=== PATIENT | male | born 1960 | race Caucasian/White ===

== ENCOUNTER → 2022-06-30 15:55 | Outpatient (REF) | payer BC, SELFPAY | LOC: HO.SL 15:55 | PROVIDERS: PCP Internal Medicine; Visit Provider Nurse Practitioner Family | DX: G47.33 Obstructive sleep apnea (adult) (pediatric) (principal); Z99.89 Dependence on other enabling machines and devices | CPT/HCPCS: 95806 ==

== ENCOUNTER → 2022-09-28 15:50 | Outpatient (BNVA) | payer BC, SELFPAY | PROVIDERS: PCP Internal Medicine; Visit Provider Nurse Practitioner Family | DX: Z13.89 Encounter for screening for other disorder (principal) ==

== ENCOUNTER 2023-03-31 14:24 | Outpatient (AMB) | payer BC, SELFPAY ==
--- NOTE | 2023-03-31 14:32 | A.OFFVIS_ITS ---
Intake Vital Signs 03/31/23 14:33 Height 6 ft 3 in Weight 248 lb BMI 31.0 BP 122/88 Blood Pressure Location Rt brachial Position Sitting Intake Visit Reasons: 6 mo f/u -Confirmed Intake Note: Patient presents for 6 month follow up. Patient states the headches are controlled better with the nurtec. Allergies Penicillins Allergy (Severe, Verified 03/31/23 14:36) Fever Medication List - Last Reconciled 03/31/23 by HERNAN Jean folic acid-vit B6-vit B12 2.2-25-0.5 mg (Folplex) 1 tab PO DAILY rimegepant (Nurtec ODT) 75 mg PO Q OTHER DAY PRN 30 days tadalafil 10 mg PO HPI HPI Comments History of Present Illness Details 62-yr-old male presents for f/u visit. Pt denies any significant interval medical changes. Pt reports that he continues to have cluster headache every October and February- May. His last cluster attack started in Feb. His cluster attack is right-sided. Taking Nurtec and high-flow O2 at onset helps to decrease intensity. During cluster attacks- he avoids triggers such as alcohol or certain foods, such as left-over pork. He has unilateral headaches with photophobia/phonophobia, which responds well to Nurtec odt 75mg. He is needing to use Nurtec on average 3-4 x's per month. He continues to sleep well with APAP 5-20 cmH2O, occassionally may remove mask in his sleep. I am unable to access his [employer] account today, however pt has [employer] sam which continues to show residual AHI < 5. PFSH Surgical History Hx of hand surgery History of deviated nasal septum Family History Father Pancreatic cancer Mother No known health problems Social History Household Members: Spouse Alcohol intake: current Alcohol intake frequency: holidays/special occasions only Patient Tobacco Use Status: Former Tobacco user Review of Systems Const All systems reviewed & are unremarkable except as noted in HPI and below Physical Exam Vital Signs: Last Vital Signs BP 122/88 03/31/23 14:33 BMI result Body Mass Index 31.0 Const General: cooperative and no acute distress Orientation/consciousness: patient oriented x3 HEENT Head: Yes normocephalic Resp Effort & Inspection: normal respiratory effort and able to speak in complete sentences Neuro General: patient oriented x3, gait normal and CN's II-XI intact bilaterally Cognition (Neuro): normal cognition Motor exam (neuro): 5/5 motor strength present throughout Psych Appearance: grossly normal Mental Status: mental status grossly normal Speech and movement: Normal speech and movement present Affect: normal affect Attitude: cooperative Thought process: Normal thought process present Thought content: Normal thought content present Insight: Good insight present (Psych) Judgement: Good judgement present (Psych) Assessment & Plan Assessment & Plan (1) Cluster headache, episodic: Code(s): G44.019 - Episodic cluster headache, not intractable (2) Migraine: Code(s): G43.909 - Migraine, unspecified, not intractable, without status migrainosus (3) Moderate obstructive sleep apnea: Code(s): G47.33 - Obstructive sleep apnea (adult) (pediatric) Plan For CH and migraine: High Flow oxygen for clusters 12-15LPM for 15 min?prn cluster attack. Continue Nurtec ODT 75mg qod prn onset of headache/migraine. He previously tried and failed: imitrex , zomig , topiramate, propranalol, verapramil, fioricet, ibuprofen, tylenol etc. Brief trial of Gamma Core during an attack- unhelpful. Future considerations: Emgality 300mg at onset of and then monthly throughout Cluster attack. Zavegepant CGRP nasal spray- when available. For NATHALY: Continue APAP 5-20 cmH2O nightly > 4 hrs- as pt is having good clinical effect. Will again request that we be connected to pt's [employer] account. [place] and change PAP supplies routinely. f/u in 6 months or sooner prn. Coding Level of Care Code Est Pt Level 4 (19486) Diagnoses Cluster headache, episodic G44.019 Migraine G43.909 Moderate obstructive sleep apnea G47.33
[2023-03-31 14:33] VITALS: BP 122/88; BMI 31.0
== END 2023-03-31 15:03 | disposition home or self-care (01) ==
PROVIDERS: Visit Provider Nurse Practitioner Family
DX: G44.019 Episodic cluster headache, not intractable (principal); G43.909 Migraine, unspecified, not intractable, without status migrainosus; G47.33 Obstructive sleep apnea (adult) (pediatric)
CPT/HCPCS: 99214

== ENCOUNTER → 2023-03-31 14:24 | Outpatient (BNVA) | payer BC, SELFPAY | PROVIDERS: Visit Provider Nurse Practitioner Family ==

== ENCOUNTER 2023-12-22 12:59 | Outpatient (AMB) | payer BC, SELFPAY ==
--- NOTE | 2023-12-22 13:01 | A.OFFVIS_ITS ---
Vital Signs 12/22/23 13:07 Height 6 ft 3 in Weight 246 lb BMI 30.7 BP 120/80 Blood Pressure Location Lt brachial Position Sitting Pulse 56 Pulse Source Pulse Oximeter Pulse Oximetry (%) 9 L Oxygen Delivery Method Room Air Intake Visit Reasons: 6 mnts f/u appt -Conf Intake Note: Patient presents for 6 months f/u. Not using CPAP machine for 2 months now due to waking up choking. Allergies Penicillins Allergy (Severe, Verified 12/22/23 13:06) Fever Medication List - Last Reconciled 12/22/23 by HERNAN Jean folic acid-vit B6-vit B12 2.2-25-0.5 mg (Folplex) 1 tab PO DAILY rimegepant (Nurtec ODT) 75 mg PO Q OTHER DAY PRN 30 days tadalafil 10 mg PO HPI Comments Details: 63-yr-old male presents for f/u visit. Pt denies any significant interval medical changes. He states that he started having difficulties using his CPAP machine. Found himself waking up choking and having difficulty breathing, so he stopped it about 2 weeks ago. Without CPAP, he feels he has not slept as well. He has not had any nocturnal SOB or difficulty breathing when not using CPAP. He does plan to try using CPAP again. Pt reports that he continues to have cluster headache every October and February- May. His cluster attack is right-sided. Taking Nurtec and high-flow O2 at onset helps to decrease intensity. During cluster attacks- he avoids triggers such as alcohol or certain foods, such as left-over pork. He also has unilateral headaches with photophobia/phonophobia, which responds well to Nurtec odt 75mg. He is needing to use Nurtec on average 3-4 x's per month, however in the last month has needed to use Nurtec 15 days. He does have a home O2 tank- uses prn cluster attack. Uses [employer]. [facility] Surgical History Hx of hand surgery History of deviated nasal septum Family History Father Pancreatic cancer Mother No known health problems Social History Household Members: Spouse Alcohol intake: current Alcohol intake frequency: holidays/special occasions only Patient Tobacco Use Status: Former Tobacco user Physical Exam Vital Signs: Last Vital Signs Pulse 56 12/22/23 13:07 BP 120/80 12/22/23 13:07 Pulse Ox 9 L 12/22/23 13:07 Oxygen Delivery Method Room Air 12/22/23 13:07 BMI result Body Mass Index 30.7 Const General: cooperative and no acute distress Orientation/consciousness: patient oriented x3 Resp Effort & Inspection: normal respiratory effort and able to speak in complete sentences Neuro General: patient oriented x3 Cranial nerves: Yes CN's II-XII intact bilaterally Cognition (Neuro): normal cognition Psych Appearance: grossly normal Mental Status: mental status grossly normal Speech and movement: Normal speech and movement present Affect: normal affect Attitude: cooperative Assessment & Plan Assessment & Plan (1) Cluster headache, episodic: Code(s): G44.019 - Episodic cluster headache, not intractable Category: Medical (2) Migraine: Code(s): G43.909 - Migraine, unspecified, not intractable, without status migrainosus Category: Medical (3) NATHALY on CPAP: Code(s): G47.33 - Obstructive sleep apnea (adult) (pediatric); Z99.89 - Dependence on other enabling machines and devices Category: Medical (4) Moderate obstructive sleep apnea: Code(s): G47.33 - Obstructive sleep apnea (adult) (pediatric) Category: Medical Plan For CH and migraine: High Flow oxygen for clusters 12-15LPM for 15 min?prn cluster attack. Continue Nurtec ODT 75mg qod prn onset of headache/migraine. He previously tried and failed: imitrex , zomig , topiramate, propranalol, verapramil, fioricet, ibuprofen, tylenol etc. Brief trial of Gamma Core during an attack- unhelpful. Future considerations: Emgality 300mg at onset of and then monthly throughout Cluster attack. Zavegepant CGRP nasal spray- when available. ? For NATHALY: Try resuming APAP 5-20 cmH2O nightly > 4 hrs- as pt typically has good clinical effect from use. If pt does not tolerate it again, consider adjusting pressures. Clean and change PAP supplies routinely. ? f/u in 12 months or sooner prn. Coding Level of Care Code Est Pt Level 4 (39839) Diagnoses Cluster headache, episodic G44.019 Migraine G43.909 NATHALY on CPAP G47.33; Z99.89 Moderate obstructive sleep apnea G47.33
[2023-12-22 13:07] VITALS: BP 120/80; PULSE 56; O2SAT 9; BMI 30.7
== END 2023-12-22 13:58 | disposition home or self-care (01) ==
PROVIDERS: PCP Internal Medicine; Visit Provider Nurse Practitioner Family
DX: G44.019 Episodic cluster headache, not intractable (principal); G43.909 Migraine, unspecified, not intractable, without status migrainosus; G47.33 Obstructive sleep apnea (adult) (pediatric); Z99.89 Dependence on other enabling machines and devices
CPT/HCPCS: 99214

== ENCOUNTER → 2023-12-22 12:59 | Outpatient (BNVA) | payer BC, SELFPAY | PROVIDERS: PCP Internal Medicine; Visit Provider Nurse Practitioner Family ==

== ENCOUNTER 2024-12-21 12:49 | Outpatient (AMB) | payer OTHER, SELFPAY ==
--- NOTE | 2024-12-21 13:01 | A.OFFVIS_ITS ---
Vital Signs 12/21/24 13:02 Height 6 ft 3 in Weight 245 lb 4 oz BMI 30.7 BP 110/70 Blood Pressure Location Rt brachial Position Sitting Pulse 69 Pulse Source Pulse Oximeter Pulse Oximetry (%) 95 Oxygen Delivery Method Room Air Intake Visit Reasons: 1 Yr Follow up [employer] Required: No Accompanied by: Self / Same As Patient Allergies Penicillins Allergy (Severe, Verified 12/21/24 13:02) Fever HPI Comments Details: 64-yr-old male presents for f/u visit for cluster headache, migraine/obstructive sleep apnea. Pt denies any significant interval medical changes. Other than having a RLE US to r/o a DVT- which was negative- following a right calf strain d/t a tennis in [employer]. He did just recently retire. He states he has not been using his CPAP for several months. He stopped Found himself waking up choking and having difficulty breathing, so he stopped it about 2 weeks ago. Without CPAP, he feels he has not slept as well. He has not had any nocturnal SOB or difficulty breathing when not using CPAP. He does plan to try using CPAP again. Pt reports that he continues to have cluster headache every October and February- May. His cluster attack is right-sided. Taking Nurtec and high-flow O2 at onset helps to decrease intensity. During cluster attacks- he avoids triggers such as alcohol or certain foods, such as left-over pork. He also has unilateral headaches with photophobia/phonophobia, which responds well to Nurtec odt 75mg. He is needing to use Nurtec on average 3-4 x's per month, since the onset of spring- he has needed to take Nurtec approximately 12 times. He does have a home O2 tank- uses prn cluster attack. He asked to clarify what L flow he should use during attacks. He is currently using a full facemask. Uses [employer]. PFSH Surgical History Hx of hand surgery History of deviated nasal septum Family History Father Pancreatic cancer Mother No known health problems Social History Household Members: Spouse Alcohol intake: current Alcohol intake frequency: holidays/special occasions only Patient Tobacco Use Status: Former Tobacco user Physical Exam Vital Signs: Last Vital Signs Pulse 69 12/21/24 13:02 BP 110/70 12/21/24 13:02 Pulse Ox 95 12/21/24 13:02 Oxygen Delivery Method Room Air 12/21/24 13:02 BMI result Body Mass Index 30.7 Const General: cooperative and no acute distress Orientation/consciousness: patient oriented x3 Resp Effort & Inspection: normal respiratory effort and able to speak in complete sentences Neuro General: patient oriented x3 Cranial nerves: Yes CN's II-XII intact bilaterally Cognition (Neuro): normal cognition Psych Appearance: grossly normal Mental Status: mental status grossly normal Speech and movement: Normal speech and movement present Affect: normal affect Attitude: cooperative Assessment & Plan Assessment & Plan (1) Cluster headache, episodic: Code(s): G44.019 - Episodic cluster headache, not intractable Category: Medical Qualifiers: Intractability: not intractable Qualified Code(s): G44.019 - Episodic cluster headache, not intractable (2) Migraine: Code(s): G43.909 - Migraine, unspecified, not intractable, without status migrainosus Category: Medical Qualifiers: Migraine type: migraine (< 15 days per month) without aura Status migrainosus presence: without status migrainosus Intractability: not intractable Qualified Code(s): G43.009 - Migraine without aura, not intractable, without status migrainosus (3) Moderate obstructive sleep apnea: Code(s): G47.33 - Obstructive sleep apnea (adult) (pediatric) Category: Medical Plan For CH and migraine: High Flow oxygen for clusters 15-25 LPM for 15-20 min?prn cluster attack. Advised to try a non-rebreather facemask or the ClusterO2?Kit offered through the [employer] organization-in place of the simple fullface mask. Continue Nurtec ODT 75mg qod prn onset of headache/migraine. He previously tried and failed: imitrex , zomig , topiramate, propranalol, verapramil, fioricet, ibuprofen, tylenol etc. Brief trial of Gamma Core during an attack- unhelpful. Future considerations: Emgality 300mg at onset of and then monthly throughout Cluster attack. Zavegepant CGRP nasal spray- when available. ? For NATHALY: Adjusted APAP settings from APAP 5-20 cm H2O with EPR 2 to APAP 5-20 cm H2O with EPR 3- in hopes this improves PAP tolerance again. Encouraged to try a sleep apnea wedge pillow to optimize PAP tolerance. Clean and change PAP supplies routinely. ? f/u in 12 months or sooner prn. Coding Level of Care Code Est Pt Level 4 (72779) Diagnoses Episodic cluster headache, not intractable G44.019 Intractability: not intractable Migraine without aura and without status migrainosus, not intractable G43.009 Migraine type: migraine (< 15 days per month) without aura Status migrainosus presence: without status migrainosus Intractability: not intractable Moderate obstructive sleep apnea G47.33
[2024-12-21 13:02] VITALS: BP 110/70; PULSE 69; O2SAT 95; BMI 30.7
--- OUTSIDE RECORDS SUMMARY | 2024-12-21 14:45 | XMS_ITS | Clinical Summary ---
Author Organization [address] [facility] Address [address] [place] [id number] Phone Care Team Providers Care Podiatric Foot And Ankle Specialist Name Role Phone Delgado Valle MD Primary Care Provider [phone] Encounters Date Type Department Care Team Description 10/30/2024 1:30 PM EDT Ancillary Procedure [facility] [address] [facility] [address] [place] [address] EKG abnormality from Last 3 Months Social History Tobacco Use Types Packs/Day Years Used Date Smoking Tobacco: Never Assessed Sex and Gender Information Value Date Recorded Sex Assigned at Not on file Legal Sex Male 10:48 AM EST Gender Identity Not on file Sexual Orientation Not on file Last Filed Vital Signs Vital Sign Reading Time Taken Comments Blood Pressure - - Pulse - - Temperature - - Respiratory Rate - - Oxygen Saturation - - Inhaled Oxygen Concentration - - Weight 111 kg (245 lb) 10/30/2024 2:34 PM EDT Height 190.5 cm (6' 3 ) 10/30/2024 2:34 PM EDT Body Mass Index 30.62 10/30/2024 2:34 PM EDT Plan of Treatment Health Maintenance Due Date Last Done Comments DTaP,Tdap,and Td Vaccines (1 - Tdap) 09/08/1978 Pneumococcal Vaccine: 50+ Years (1 of 1 - PCV) 09/08/2009 COVID-19 Vaccine (2023-2 5 season) 2024 07/01/2021, 08/29/2020, 08/01/2020 Abdominal Aortic Aneurysm (AAA) Screen 10/24/2024 Cholesterol Screening (Lipid Panel) 10/24/2024 Colorectal Cancer Screening: Colonoscopy 10/24/2024 Depression Screening 10/24/2024 Falls Risk Assessment 10/24/2024 Hepatitis C Screening 10/24/2024 Social Influencers of Health Screening 10/24/2024 Influenza Vaccine (Season Ended) 2025 06/15/2022 RSV Immunization Adult Patients (1 - 1-dose 75+ series) 09/08/2034 Zoster Vaccines Completed 08/11/2018, 04/20/2018 HIB Vaccines Aged Out No longer eligi ble based on patient's age to complete this topic HPV Vaccines Aged Out No longer eligi ble based on patient's age to complete this topic Hepatitis A Vaccines Aged Out No long er eligible based on patient's age to complete this topic Hepatitis B Vaccines Aged Out No long er eligible based on patient's age to complete this topic IPV Vaccines Aged Out No longer eligi ble based on patient's age to complete this topic MMR Vaccines Aged Out No longer eligi ble based on patient's age to complete this topic Meningococcal ACWY Vaccine Aged Out N o longer eligible based on patient's age to complete this topic Meningococcal B Vaccine Aged Out No l onger eligible based on patient's age to complete this topic Pneumococcal Vaccine: Pediatrics (0 to 5 Years) and At-Risk Patients (6 to 64 Years) Aged Out No longer eligible b ased on patient's age to complete this topic RSV Immunization Patients Under 20 months Aged Out No longer eligible b ased on patient's age to complete this topic Varicella Vaccines Aged Out No longer eligible based on patient's age to complete this topic Procedures Procedure Name Priority Date/Time Associated Diagnosis Comments STRESS ECHOCARDIOGRAM EXERCISE STAT 10/30/2024 2:34 PM EDT EKG abnormality from Last 3 Months Results * STRESS ECHOCARDIOGRAM EXERCISE (10/30/2024 2:34 PM EDT) BSA 2.43 m2 CV PACS STRESS Exercise/injec tion duration (min) 6 CV PACS STRESS Exercise/injec tion duration (sec) 59 CV PACS STRESS Peak SBP 152 mmHg CV PACS STRESS Peak DBP 78 mmHg CV PACS STRESS Peak HR 141 bpm CV PACS STRESS Baseline HR 65 bpm CV PACS STRESS Baseline SBP 108 mmHg CV PACS STRESS Baseline DBP 62 mmHg CV PACS STRESS Estimated workload 10.0 METS CV PACS STRESS Percent HR 91 % CV PACS STRESS Rate Pressure Product 21,432.0 mmHg*bpm CV PACS STRESS Target HR 132 bpm CV PACS STRESS Anatomical Region Laterality Modality Ultrasound 10/30/2024 1:56 PM EDT 10/30/2024 2:38 PM EDT Narrative 10/31/2024 9:01 AM EDT ?No evidence of ischemia by echo at this adequate level of stress. ?No significant chest pain. Frequent PVCs noted with exercise. Non-specific ST changes. ?Exercise stress test was performed. Patient reported no symptoms during the stress test. Exercise capacity was above average. Normal blood pressure response. Left Ventricle Left ventricle cavity size is normal. Systolic function is normal with an ejection fraction of 55-60%. There are no regional LV wall motion abnormalities. Right Ventricle Systolic function is normal. Study Details Overall the study quality was adequate. Stress Findings A Ronn protocol stress test was performed. Overall, the patient's exercise capacity was above average. Total stress time was 6 min and 59 sec. The test was stopped because the patient experienced fatigue. Blood pressure demonstrated a normal response. Heart rate demonstrated a normal response. The patient reported no symptoms during the stress test. ECG 64 year old male referred for stress testing due to ECG changes at PCP office visit- unable to locate ECG. Patient denies symptoms. No pertinent PMH. The ECG shows normal sinus rhythm. The ECG axis is normal. Mild non-specific ST abnormalities noted at baseline. Arrhythmias during stress: frequent premature ventricular contractions (PVCs) at peak exercise. There is non-specific ST abnormalities during stress in the setting of baseline abnormal ECG. There were no arrhythmias during recovery. Echo Post Stress Left ventricular cavity size decreased from baseline. Left ventricular systolic function improved from baseline. Systolic function is hyperdynamic with an ejection fraction over 70%. Normal wall motion, unchanged from baseline. us Delgado Valle MD CV ECHO PROCEDURES Final Result from Last 3 Months Insurance [facility] Care Teams Podiatric Foot And Ankle Specialist Relationship Specialty Start Date End Date Delgado Valle MD [address] [place] [address] PCP - General Internal Medicine 10/30/24
== END 2024-12-21 13:55 | disposition home or self-care (01) ==
LOC: HO.HSMS 12:49
PROVIDERS: PCP Internal Medicine; Visit Provider Nurse Practitioner Family
DX: G44.019 Episodic cluster headache, not intractable (principal); G43.009 Migraine without aura, not intractable, without status migrainosus; G47.33 Obstructive sleep apnea (adult) (pediatric)
CPT/HCPCS: 99214

== ENCOUNTER → 2024-12-21 12:49 | Outpatient (BNVA) | payer OTHER, SELFPAY | PROVIDERS: PCP Internal Medicine; Visit Provider Nurse Practitioner Family ==

== ENCOUNTER 2025-04-27 08:03 | Outpatient (AMB) | payer OTHER, SELFPAY ==
--- OUTSIDE RECORDS SUMMARY | 2025-04-24 08:30 | XMS_ITS | Encounter Summary ---
Author Organization [facility] Address [address] [place] [address] Care Team Providers Care Screening Tech Name Role Phone Delgado Valle MD Primary Care Provider [phone] Reason for Visit * Reason Comments Hernia * Consultation (Routine) - Authorized Specialty Diagnoses / Procedures Referred By Contac t Referred To Contact General Surgery Diagnoses Unilateral inguinal hernia, without obstruction or gangrene, not specified as recurrent Delgado Valle MD [address] [place] [address] Phone: tel: fax: General Surgery [address] [address] Phone: tel: fax: Referral ID Status Reason Start Date Expiration Date Visits Requested Visits Authorized [id number] Authorized Specialty Services Required 03/07/2025 03/07/2026 1 1 Encounter Details Date Type Department Care Team ([facility] st Contact Info) Description 04/24/2025 8:30 AM EDT Consult General Surgery - [address] [address] Jamaal Wright MD [address] [place] [phone] Chronic groin pain, right (Primary Dx) Social History Tobacco Use Types Packs/Day Years Used Date Smoking Tobacco: Never Assessed Sex and Gender Information Value Date Recorded Sex Assigned at Not on file Legal Sex Male 10:48 AM EST Gender Identity Not on file Sexual Orientation Not on file documented as of this encounter Last Filed Vital Signs Vital Sign Reading Time Taken Comments Blood Pressure 136/84 04/24/2025 8:19 AM EDT Pulse 71 04/24/2025 8:19 AM EDT Temperature 36.2 C (97.1 F) 04/24/2025 8:19 AM EDT Respiratory Rate - - Oxygen Saturation - - Inhaled Oxygen Concentration - - Weight 108 kg (239 lb) 04/24/2025 8:19 AM EDT Height - - Body Mass Index 29.87 10/30/2024 2:34 PM EDT documented in this encounter Progress Notes * Jamaal Wright MD - 04/24/2025 8:30 AM EDT Referring MD:Delgado Valle MD Kar Gonzalez is a 64 y.o. year old male who presents for outpatient consultation regarding the management of intermittent episodes of discomfort in his right groin, not clearly associated on careful questioning with anything that feels like a visible bulge or protrusion. The most recent episodeoccurred after he was bending over to tie his shoes. Discomfort lasted for a couple of days. He hasnot had anyone independently confirm the presence of an actual hernia on exam, to my knowledge. He has not had any cross-sectional imaging. He denies any GI-type symptoms that bother him when he is having the groin symptoms. In terms of risk factors for hernia, carries a bit of extra weight, denieschronic constipation or cough, no signs of significant prostatism, has never been a smoker. Recently retired from work with [employer] in the [facility]. ROS: GENERAL: No malaise, significant weight loss or fever RESPIRATORY: No cough, wheezing or shortness of breath CARDIOVASCULAR: No chest pain, leg swelling or palpitations GI: No blood in stools or black stools : No dysuria, frequency or incontinence PAST MEDICAL HISTORY: Patient Active Problem List Diagnosis Date Noted Chronic groin pain, right 04/24/2025 PAST SURGICAL HISTORY: Surgical History[1] SOCIAL HISTORY: Social History Tobacco Use Smoking status: Not on file Smokeless tobacco: Not on file Substance Use Topics Alcohol use: Not on file FAMILY HISTORY: Family History[2] No family status information on file. ACTIVE MEDICATIONS: Medications Taking[3] ALLERGIES: Allergies[4] PHYSICAL EXAM: Visit Vitals BP 136/84 Pulse 71 Temp 36.2 ??C (97.1 ??F) (Temporal) Wt 108 kg (239 lb) BMI 29.87 kg/m?? BSA 2.36 m?? Pleasant well nourished , well developed white male in no acute distress. His sclera are non-icteric. His pupils are round. His extraocular muscles are grossly intact. Dentition intact, good repair, 2 maxillary incisor caps noted. His lungs are clear. His heart has a regular rate and rhythm. There is no suspicious cervical adenopathy, no carotid bruit auscultated. His abdomen is non-tender. Thereis no apparent organomegaly. Examined while he stands, groins are visually symmetric. No left inguinal hernia. 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 His skin is warm without obvious cancers or lesions in the limited area seen. There is no peripheral edema. His neurologic exam is grossly normal. He isalert and oriented to time and place and reason for this consultation. LABS: No results found for: WBC , HGB , HCT , MCV No results found for: NA , K , CO2 , CL , BUN , GLU , ALB , ALKPHOS , TP IMAGING: None IMPRESSION: 1. Chronic groin pain, right Plan: At this point, I cannot feel anything that resembles a hernia. Story is inconclusive, although he certainly could have a shy inguinal hernia that typically remains reduced. Options include watchfulwaiting with a reassessment in 6 months or so, or obtaining a CT scan, although scans are not always definitive if the hernia is reduced at the time of imaging. I have not had much luck in getting the CT techs to have patients do Valsalva during the scan. After some discussion, we will reassess himin the spring. If he develops the acute discomfort accompanied by a lump or bulge that he can really feel, he is to call the office to try and be seen promptly. He agrees completely. Medication and lab orders: No orders of the defined types were placed in this encounter. Other orders: [1] No past surgical history on file. [2] No family history on file. [3] Outpatient Medications Marked as Taking for the 04/24/25 encounter (Consult) with Jamaal Wright MD Medication Sig Dispense Refill B complex tablet Take 1 tablet by mouth 1 (one) time each day. [4] Allergies Allergen Reactions Penicillins Rash documented in this encounter Plan of Treatment Upcoming Encounters Date Type Department Care Team (Late st Contact Info) Description 10/23/2025 8:00 AM EDT Office Visit General Surgery [facility] [address] [place] [address] Jamaal Wright MD [address] [place] [phone] documented as of this encounter Visit Diagnoses Diagnosis Chronic groin pain, right- Primary documented in this encounter Historical Medications * This list may reflect changes made after this encounter. B complex tablet Take 1 tablet by mouth 1 (one) time each day. added in this encounter Orders Outpatient Referral Count Last Ordered Date Fir st Ordered Date AMB REFERRAL TO GENERAL SURGERY 1 documented in this encounter Care Teams Screening Tech Relationship Specialty Start Date End Date Delgado Valle MD [address] [facility] [place] [address] PCP - General Internal Medicine 10/30/24 documented as of this encounter
--- OUTSIDE RECORDS SUMMARY | 2025-04-27 08:17 | XMS_ITS | Clinical Summary ---
Author Organization [address] [place] [address] [place] [phone] Phone Care Team Providers Care Plasterer Tender Name Role Phone Delgado Valle MD Primary Care Provider [phone] Allergies Active Allergy Reactions Criticality Noted Date Comments Penicillins Rash 04/24/2025 Medications B complex tablet Take 1 tablet by mouth 1 (one) time each day. Active Active Problems Problem Noted Date Diagnosed Date Chronic groin pain, right 04/24/2025 Encounters Date Type Department Care Team Description 04/24/2025 8:30 AM EDT Consult General Surgery - [address] [place] [address] Jamaal Wright MD Chronic groin pain, right (Primary Dx) from Last 3 Months Social History Tobacco [...] (239 lb) 04/24/2025 8:19 AM EDT Height 190.5 cm (6' 3 ) 10/30/2024 2:34 PM EDT Body Mass Index 29.87 10/30/2024 2:34 PM EDT Plan of Treatment Upcoming Encounters Date Type Department Care Team (Late st Contact Info) Description 10/23/2025 8:00 AM EDT Office Visit General Surgery - [place] [address] [facility] [address] [place] [address] Jamaal Wright MD [address] [place] [phone] Health Maintenance Due Date Last Done Comments Colorectal Cancer Screening: Colonoscopy 1960 DTaP,Tdap,and Td Vaccines (1 - Tdap) 09/08/1978 Pneumococcal Vaccine: 50+ Years (1 of 1 - PCV) 09/08/2009 Depression Screening 07/12/2024 Abdominal Aortic Aneurysm (AAA) Screen 10/24/2024 Cholesterol Screening (Lipid Panel) 10/24/2024 Falls Risk Assessment 10/24/2024 Hepatitis C Screening 10/24/2024 Social Influencers of Health Screening 10/24/2024 COVID-19 Vaccine (4 - 2024-2 6 season) 2025 07/01/2021, 08/29/2020, 08/01/2020 Influenza Vaccine (#1) 2025 06/15/2022 RSV Immunization Adult Patients (1 [...] on patient's age to complete this topic Insurance [employer] [id number] Care Teams Plasterer Tender Relationship Specialty Start Date End Date Delgado Valle MD [address] [place] [address] PCP - General Internal Medicine 10/30/24
[2025-04-27 08:18] VITALS: BP 119/51; PULSE 62; BMI 29.6
--- NOTE | 2025-04-27 08:18 | A.OFFVIS_ITS ---
Vital Signs 04/27/25 08:18 Height 6 ft 3 in Weight 237 lb 3.478 oz BMI 29.6 BP 119/51 L Blood Pressure Location Rt radial Position Sitting Pulse 62 Intake Visit Reasons: Bloating, MGR request. Intake Note: New pt for initial eval of bloating. CC: C.O. abd bloating. First noticed in summer time around January/ February. Denies nausea, vomiting. Reports normal BM. Denies diarrhea, constipation. Airline Reservation Agent Required: No Accompanied by: Self / Same As Patient Allergies Penicillins Allergy (Severe, Verified 04/27/25 08:27) Fever HPI HPI Bloating, MGR request.: Details: 64-year-old male with past medical history of migraine headaches, NATHALY is here today for initial consultation. Patient was sent to us by his PCP. Patient reports that back in January of this year patient was having episodes of severe abdominal bloating. Patient reports that symptoms would last few days. Patient denies nausea, vomiting, fever, chills, epigastric pain, dyspepsia, dysphagia or odynophagia. Denies melena, hematochezia, unintentional weight loss or ribbon like stools. Patient reports that he was moving his bowels without any issues and still does. Patient reports that he changed some of the food that he was eating and his symptoms got better. Occasional abdominal bloating depending on what he eats. Patient is trying to eat clean. Avoiding milk products. Eating lots of vegetables. Reports last colonoscopy 5 years ago or so. Patient believes that his last colonoscopy was normal. Previously patient had precancerous polyps. Checked [facility] for records in the past 5 years and non was found. Patient should go for colonoscopy to evaluate to check for polyps. Patient was told that he should try pre or probiotics, however he wanted to wait for disappointment before starting anything. Patient denies any issues with anesthesia in the past. History of sleep apnea, on CPAP. Patient denies any cardiac or respiratory symptoms. Not on any anticoagulation medication. [facility] Medical History (Updated 04/27/25 @ 19:09 by Kiana Romano [facility]) NATHALY on CPAP Migraine Surgical History Hx of hand surgery History of deviated nasal septum Family History Father Pancreatic cancer Mother No known health problems Social History Household Members: Spouse Alcohol intake: current Alcohol intake frequency: holidays/special occasions only Patient Tobacco Use Status: Former Tobacco user Review of Systems Const Denies weight gain and Denies weight loss ENT Reports no additional complaints, Denies dysphagia and Denies odynophagia Card Reports no additional complaints Resp Reports no additional complaints GI Reports abdominal pain (Cramping), Denies belching, Denies melena, Reports bloating, Denies change in bowel habits, Denies dysphagia, Denies excessive flatus, Denies dyspepsia, Denies heartburn, Denies diarrhea, Denies loose stools, Denies nausea, Denies odynophagia and Denies vomiting Reports no additional complaints Musc Reports no additional complaints Neuro Reports no additional complaints Psych Reports no additional complaints Endo Reports no additional complaints Physical Exam Vital Signs: Last Vital Signs Pulse 62 04/27/25 08:18 BP 119/51 L 04/27/25 08:18 BMI result Body Mass Index 29.6 Const General: healthy appearing, no acute distress and well developed Nutritional Appearance: well nourished and obese Orientation/consciousness: patient oriented x3 Resp Effort & Inspection: normal respiratory effort, able to speak in complete sentences, no tracheal deviation and symmetric chest movement Auscultation: clear to auscultation bilaterally Cardio Rate: regular rate GI Inspection: Yes normal to inspection, No distended and Yes obesity Palpation (GI): Soft to palpation, not firm, nontender and No hepatosplenomegaly present Auscultation: normal bowel sounds General: Yes no CVA tenderness Back/Spine/Pelvis Back: no CVA tenderness Skin General skin exam: elasticity normal, turgor normal and dry skin Neuro General: patient oriented x3 Psych Appearance: grossly normal Mental Status: mental status grossly normal Assessment & Plan Assessment & Plan (1) Postprandial abdominal bloating: Code(s): R14.0 - Abdominal distension (gaseous) (2) Screen for colon cancer: Code(s): Z12.11 - Encounter for screening for malignant neoplasm of colon Plan Patient reports abdominal bloating most likely related to food. Discussed with patient avoiding dietary triggers. Discussed with him low FODMAP diet. List of food recommended as well as list of food to avoid given to patient. Will check vitamin B12, folate vitamin-D level as well as transglutaminase. Patient will be sent for colonoscopy as no records in the past 5 years in [place] or at [facility]. Will request records from his PCP. What to expect before during and after procedure discussed with patient. Stressed the importance of good bowel prep and clear liquid diet day before procedure. Patient will be seen in the office after the procedure. He was encouraged to call us if he will have any GI concerning symptoms. He is agreeable to current plan of care and verbalizes understanding of instructions. He was given the opportunity to ask questions and all questions answered. Thank you for allowing me to participate in his care Orders: Orders Vitamin B12 and Folate Today R19.7 - Diarrhea, unspecified Vitamin D 25-OH (D2 and D3) Today E55.9 - Vitamin D deficiency, unspecified Transglutaminase IgA Today R10.9 - Unspecified abdominal pain Referrals GI Procedure Notification Z12.11 - Encounter for screening for malignant neoplasm of colon Medications: New bisacodyl (Dulcolax (bisacodyl)) take 4 tabs at noon the day before your colonoscopy 20 mg (4 x 5 mg) PO ONCE 4 tabs 0RF constipation 1 day Z12.11 - Encounter for screening for malignant neoplasm of colon polyethylene glycol 3350 (Miralax) As directed by gastro[facility]ology department at [facility] 238 grams PO ONCE 238 grams 0RF Z12.11 - Encounter for screening for malignant neoplasm of colon Coding Level of Care Code New Pt Level 4 (20648) Diagnoses Postprandial abdominal bloating R14.0 Screen for colon cancer Z12.11 Time Spent (min) 50 Comment 35 minutes spent with patient and additional 15 minutes spent reviewing his records
== END 2025-04-27 09:17 | disposition home or self-care (01) ==
LOC: HO.HGI 08:04
PROVIDERS: PCP Internal Medicine; Visit Provider Nurse Practitioner Family
DX: R14.0 Abdominal distension (gaseous) (principal)
CPT/HCPCS: 99204

== ENCOUNTER 2025-04-27 08:03 | Outpatient (REF) | payer OTHER, SELFPAY ==
[2025-04-27 14:11] LABS: Folate > 20.0 ng/mL (> or = 4.0); Vitamin B12 825 pg/mL (200-900)
[2025-05-02 16:33] LABS: Vitamin D 25-OH, D2 <4 ng/mL; Vitamin D 25-OH, D3 21 ng/mL; Vitamin D 25-OH, Total 21 ng/mL (30-100)
== END 2025-04-27 08:04 | disposition home or self-care (01) ==
LOC: HO.LAB 08:03
PROVIDERS: PCP Internal Medicine; Visit Provider Nurse Practitioner Family
DX: R14.0 Abdominal distension (gaseous) (principal); R19.7 Diarrhea, unspecified; E55.9 Vitamin D deficiency, unspecified; R10.13 Epigastric pain; Z12.11 Encounter for screening for malignant neoplasm of colon
CPT/HCPCS: 36415; 82306; 82607; 82746; 86364